=== PATIENT | female | born 1985 | race Two or more races ===

== ENCOUNTER 2019-11-18 08:46 | Emergency (ER) | payer OTHER ==
[~2019-11-18] VITALS: Ht 157.5 cm; Wt 90.7 kg
[2019-11-18 08:54] VITALS: BP 129/86
--- NOTE | 2019-11-18 09:04 | Emergency Room Report ---
History of Present Illness General Chief Complaint: Pain Source: Patient Present Illness HPI Disclaimer: Please note that this report is being documented using DRAGON technology. This can lead to erroneous entry secondary to incorrect interpretation by the dictating instrument. 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 The patient was emptying some trash and was stuck by a needle at the bottom of the bag. She was pricked on the right index finger. She immediately washed it with soap and water scrubbing vigorously. No further bleeding. Needlestick occurred approximately 3:30 in the morning and presents now after her shift is ended. Reports full vaccinations including hepatitis. No history of HIV. Denies possibility of since she had a tubal ligation 2011. No other complaints at this time. PMH: Hypothyroidism PSH: Tubal ligation Allergies: Denies Social Hx: Denies Allergies: Coded Allergies: No Known Allergies (Unverified , 11/18/19) COVID-19 Screening Contact w/high risk pt: No Experienced COVID-19 symptoms?: No COVID-19 Testing performed MANAGER SWITCH: Yes - 11/05/2019 COVID-19 Screening: Negative COVID-19 COVID-19 Testing Source: [facility] Patient History Last Menstrual Period: 11/03/2019 Nursing Documentation-PMH Past Medical History: No History, Except For Review of Systems All Other Systems: negative except mentioned in HPI Physical Exam Vital Signs Date Time Temp Pulse Resp B/P (MAP) Pulse Ox O2 Delivery O2 Flow Rate FiO2 11/18/19 08:54 98.2 85 19 129/86 99 Room Air General: Awake and alert, no acute distress HEENT: NC/AT. EOMI. Resp: Normal work of breathing Skin: Intact. No abrasions, laceration or rash over the exposed skin. No obvious puncture wound or other wounds appreciated. MSK: Normal tone and bulk. Moving all extremities. No obvious deformity. Neuro: Awake and alert. 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 Concern for contaminated needle and unknown source. Patient require HIV postexposure prophylaxis. Reports hepatitis vaccines up-to-date. Labs obtained showing normal liver function studies and negative rapid HIV test. Will start on antiviral postexposure prophylaxis medications. Zofran prescribed as well. She will follow-up with for further labs and follow-up. Discussed reasons to return to ED. She understands and agrees with treatment plan. Laboratory Tests Test 11/18/19 08:50 White Blood Count 8.1 K/UL (4.8-10.8) Red Blood Count 4.88 M/UL (4.20-5.40) Hemoglobin 14.4 G/DL (12.0-16.0) Hematocrit 43.3 % (37.0-47.0) Mean Corpuscular Volume 89 FL (80-99) Mean Corpuscular Hemoglobin 29.5 PG (27.0-31.0) Mean Corpuscular Hemoglobin Concent 33.3 G/DL (32.0-36.0) Red Cell Distribution Width 12.4 % (11.6-14.8) Platelet Count 371 K/UL (150-450) Mean Platelet Volume 6.0 FL (6.5-10.1) L Neutrophils (%) (Auto) 58.8 % (45.0-75.0) Lymphocytes (%) (Auto) 31.9 % (20.0-45.0) Monocytes (%) (Auto) 7.5 % (1.0-10.0) Eosinophils (%) (Auto) 0.9 % (0.0-3.0) Basophils (%) (Auto) 0.9 % (0.0-2.0) Sodium Level 141 MMOL/L (136-145) Potassium Level 3.7 MMOL/L (3.5-5.1) Chloride Level 105 MMOL/L (98-107) Carbon Dioxide Level 28 MMOL/L (21-32) Anion Gap 8 mmol/L (5-15) Blood Urea Nitrogen 10 mg/dL (7-18) Creatinine 0.8 MG/DL (0.55-1.30) Estimated Glomerular Filtration Rate > 60 mL/min (>60) Glucose Level 123 MG/DL (74-106) H Calcium Level 8.6 MG/DL (8.5-10.1) Total Bilirubin 0.2 MG/DL (0.2-1.0) Aspartate Amino Transferase (AST) 14 U/L (15-37) L Alanine Aminotransferase (ALT) 38 U/L (12-78) Alkaline Phosphatase 141 U/L (46-116) H Total Protein 7.7 G/DL (6.4-8.2) Albumin 4.1 G/DL (3.4-5.0) Globulin 3.6 g/dL Albumin/Globulin Ratio 1.1 (1.0-2.7) HIV (1&2) Antibody Rapid Negative (NEGATIVE) Last Vital Signs Date Time Temp Pulse Resp B/P (MAP) Pulse Ox O2 Delivery O2 Flow Rate FiO2 11/18/19 08:54 98.2 85 19 129/86 (100) 99 Room Air Disposition: HOME, SELF-CARE Condition: Stable Scripts Emtricitabine/Tenofovir (Truvada 200 mg-300 mg Tablet) 1 Each Tablet 1 TAB ORAL DAILY for 28 Days, #28 TAB Prov: Booker Ferrari MD 11/18/19 Raltegravir (Isentress) 400 Mg Tablet 400 MG ORAL EVERY 12 HOURS for 28 Days, #56 TAB Prov: Booker Ferrari MD 11/18/19 Ondansetron Odt* (ZOFRAN ODT*) 4 Mg Tab.rapdis 4 MG BC EVERY 6 HOURS PRN for Nausea & Vomiting, #20 TAB 0 Refills Prov: Booker Ferrari MD 11/18/19 Booker Ferrari MD Nov 18, 2019 09:04
[2019-11-18] MEDS ORDERED: TRUVADA1 TAB ORAL (09:07)
[2019-11-18] MEDS ORDERED: ISENTRESS400 MG ORAL (09:07)
[2019-11-18] MEDS ORDERED: ONDANSETRON ODT4 MG BC (09:07)
[2019-11-18] MEDS ORDERED: Tetanus/Diptheria/Pertussis IM ONE ×2 (09:11→09:15)
[2019-11-18 09:33] LABS: ANION GAP 8 mmol/L (5-15); BLOOD UREA NITROGEN 10 mg/dL (7-18); CALCIUM 8.6 MG/DL (8.5-10.1); CARBON DIOXIDE 28 MMOL/L (21-32); CHLORIDE 105 MMOL/L (98-107); CREATININE 0.8 MG/DL (0.55-1.30); POTASSIUM 3.7 MMOL/L (3.5-5.1); SODIUM 141 MMOL/L (136-145)
[2019-11-18 09:38] LABS: ALANINE AMINOTRANSFERASE 38 U/L (12-78); ALBUMIN 4.1 G/DL (3.4-5.0); ALBUMIN/GLOBULIN RATIO 1.1 (1.0-2.7); ALKALINE PHOSPHATASE 141 U/L (46-116); ASPARTATE AMINO TRANSFERASE 14 U/L (15-37); BILIRUBIN,TOTAL 0.2 MG/DL (0.2-1.0)
[2019-11-18 09:42] LABS: BASOPHILS % (AUTO) 0.9 % (0.0-2.0); EOSINOPHILS % (AUTO) 0.9 % (0.0-3.0); HEMATOCRIT 43.3 % (37.0-47.0); HEMOGLOBIN 14.4 G/DL (12.0-16.0); LYMPHOCYTES % (AUTO) 31.9 % (20.0-45.0); MEAN CORPUSCULAR VOLUME 89 FL (80-99); MONOCYTES % (AUTO) 7.5 % (1.0-10.0); NEUTROPHILS % (AUTO) 58.8 % (45.0-75.0); PLATELET COUNT 371 K/UL (150-450); RED BLOOD COUNT 4.88 M/UL (4.20-5.40); RED CELL DISTRIBUTION WIDTH 12.4 % (11.6-14.8); WHITE BLOOD COUNT 8.1 K/UL (4.8-10.8)
[2019-11-18 10:20] VITALS: BP 121/82
[2019-11-18 10:35] VITALS: BP 121/82
== END 2019-11-18 10:34 | disposition home or self-care (01) ==
LOC: EMR 09:19
DX: S69.81XA Other specified injuries of right wrist, hand and finger(s), initial encounter (principal); W46.1XXA Contact with contaminated hypodermic needle, initial encounter; Y92.9 Unspecified place or not applicable; E03.9 Hypothyroidism, unspecified
CPT/HCPCS: 36415; 80053; 85025; 86703; 90471; 90715; 99284